=== PATIENT | female | born 1970 | race Caucasian/White ===

== ENCOUNTER 2019-05-03 09:12 | Outpatient (CLI) | payer OTHER | END 2019-05-03 09:20 | disposition home or self-care (01) | LOC: SONOGRAMA 09:12 | DX: E04.1 Nontoxic single thyroid nodule (principal) ==

== ENCOUNTER → 2025-02-14 | Outpatient (CLI) | payer OTHER ==
[~2025-02-14] MED LIST: NEXIUM20 M1 PO
== END | disposition home or self-care (01) ==
LOC: RAD 15:40
PROVIDERS: ATTEND Pathology Anatomic Pathology & Clinical Pathology
DX: D34 Benign neoplasm of thyroid gland (principal); E07.89 Other specified disorders of thyroid; E04.1 Nontoxic single thyroid nodule